=== PATIENT | female | born 1995 | race Caucasian/White ===

== ENCOUNTER 2024-12-08 12:40 | Emergency (ER) | payer MEDICAID ==
[~2024-12-08] VITALS: Ht 152.4 cm; Wt 50.0 kg
[2024-12-08 12:52] VITALS: TEMP 98.1
[2024-12-08] MEDS: METHADONE HCL 10 MG/5 ML SOLUTION ORAL.SYG PO ONE (15:07)
[2024-12-08] MEDS ORDERED: METH5SOL20 PO (15:11)
[2024-12-08 15:14] VITALS: BP 131/67; PULSE 76; RESP 18; O2SAT 100
== END 2024-12-08 15:53 | disposition home or self-care (01) ==
LOC: EMS 12:42
DX: O99.322 Drug use complicating pregnancy, second trimester (principal); Z76.0 Encounter for issue of repeat prescription; Z3A.16 16 weeks gestation of pregnancy
CPT/HCPCS: 99283

== ENCOUNTER 2025-04-06 03:21 | Emergency (ER) | payer MEDICAID, OTHER ==
[~2025-04-06] VITALS: Ht 154.9 cm; Wt 59.1 kg
[~2025-04-06 03:21] MED LIST: METH5SOL20 PO
[2025-04-06 03:32] VITALS: TEMP 98
[2025-04-06 03:50] LABS: GLUCOMETER DEV NAME(LOC) ERT.7; GLUCOSE,POINT OF CARE 88 MG/DL (70-110)
[2025-04-06] MEDS: OXYTOCIN 20 UNITS in RINGERS SOLUTION,LACTATED 1,000 ML IV ONE (05:25)
[2025-04-06] MEDS: DEXTROSE 40% LEMON 37.5 GM/TUBE GEL [15 GM GLUCOSE] PO ONE (05:26)
[2025-04-06 05:27] LABS: PLATELET COUNT (AUTO) 165 K/uL (150-450); RED BLOOD CELL COUNT(AUTO) 4.28 MIL/uL (4.00-5.20); RED CELL DISTRIBUTION WIDTH 13.6 % (11.5-14.5); WHITE BLOOD COUNT (AUTO) 8.3 K/uL (4.5-11.0)
[2025-04-06 05:29] LABS: CALCIUM, TOTAL 8.3 mg/dL (8.8-10.5); CREATININE 0.81 mg/dL (0.60-1.30); GLOMERULAR FILTR. RATE CALC > 60 mL/min (>60); GLUCOSE,RANDOM 87 mg/dL (70-110); SODIUM SERUM 133 mmol/L (136-145); UREA NITROGEN, BLOOD 10 mg/dL (7-18)
[2025-04-06 05:34] LABS: ASPARTATE AMINOTRANSFERASE 21 U/L (15-37); TOTAL PROTEIN, SERUM 6.5 g/dL (6.4-8.2)
[2025-04-06] MEDS: ACETAMINOPHEN 1000 MG/ISO-OSM 100 ML IV ONE (05:38)
[2025-04-06 06:01] VITALS: BP 121/78; PULSE 71; RESP 15; O2SAT 99
[2025-04-06] MEDS ORDERED: NALOXONE HCL 1 MG/ML 2 ML SYRINGE ONE (12:00)
== END 2025-04-06 06:15 | disposition short-term general hospital (02) ==
LOC: EMS 03:21
DX: F11.20 Opioid dependence, uncomplicated (principal)
CPT/HCPCS: 99285; 96365; 80053; 82962; 85025; 36415; 96368; J2312; J7120; J0131; J2590; 99284